=== PATIENT | male | born 1940 | race Caucasian/White ===

== ENCOUNTER 2017-11-10 07:13 | Day surgery (SDC) | payer OTHER ==
[~2017-11-10] VITALS: Ht 175.3 cm; Wt 81.8 kg
[~2017-11-10 07:13] MED LIST: AMIO200T33 PO; ASPI81TA27 PO; ENA10T PO; METO25TA62 PO; RIVA10TA PO; SIMV-13 PO
[2017-11-10] MEDS ORDERED: LIDOCAINE 2%HCL (LOCAL ANESTH.) INJ 20ML MDV ONE (07:31)
[2017-11-10] MEDS ORDERED: IODIXANOL 320MG/ML 100ML BTL IV ONE (07:31)
[2017-11-10] MEDS ORDERED: fentaNYL CITRATE 100 MCG/2 ML VL ONE (08:04)
[2017-11-10] MEDS ORDERED: SODIUM CHL 0.9% 0 ML ONE (08:04)
[2017-11-10] MEDS ORDERED: ANGIOMAX 250 MG VIAL IV ONE (08:04)
[2017-11-10] MEDS ORDERED: MIDAZOLAM HCL 1MG/1ML-2 ML VIAL ONE (08:04)
[2017-11-10] MEDS ORDERED: VERAPAMIL 2.5MG/ML INJ 2ML VIAL IV ONE (08:05)
[2017-11-10] MEDS ORDERED: HEPARIN SODIUM (PORCINE) 5000 UNITS/ML 1ML VIAL ONE (08:54)
== END 2017-11-10 10:45 | disposition home or self-care (01) ==
LOC: CATH 07:13
PROVIDERS: ATTEND Internal Medicine
DX: I25.10 Atherosclerotic heart disease of native coronary artery without angina pectoris (principal); R94.39 Abnormal result of other cardiovascular function study; I48.91 Unspecified atrial fibrillation; I99.8 Other disorder of circulatory system; I10 Essential (primary) hypertension; E11.9 Type 2 diabetes mellitus without complications; E78.5 Hyperlipidemia, unspecified; J44.9 Chronic obstructive pulmonary disease, unspecified; Z87.891 Personal history of nicotine dependence; Z79.01 Long term (current) use of anticoagulants; Z79.82 Long term (current) use of aspirin; Z79.899 Other long term (current) drug therapy
CPT/HCPCS: 93005; 93454; C1769; C1887; C1894; J1644; J2250; J3010; J7030; Q9967; 99152; 99153

== ENCOUNTER 2022-05-23 06:57 | Day surgery (SDC) | payer OTHER ==
[2022-05-23] VITALS (8 sets, daily range): BP systolic 113–133; BP diastolic 59–67
[~2022-05-23] VITALS: Ht 175.3 cm; Wt 90.7 kg
[~2022-05-23 06:57] MED LIST changes: -AMIO200T33 PO; +AMIO200T4 PO; +AMLO-496 PO; +APIX5TAB PO; -ASPI81TA27 PO; +ATOR40TA52 PO; -ENA10T PO; +ENAL10TA12 PO; +GLIP10TA9 PO; +LEVO75CA3 PO; -METO25TA62 PO; +METO25TA93 PO; +NITR0.4S29 SL; -RIVA10TA PO; -SIMV-13 PO
[2022-05-23] MEDS ORDERED: fentaNYL CITRATE 100 MCG/2 ML VL ONE (08:22)
[2022-05-23] MEDS ORDERED: HEPARIN SODIUM (PORCINE) 5000 UNITS/ML 1ML VIAL ONE (08:22)
[2022-05-23] MEDS ORDERED: MIDAZOLAM HCL 2MG/2ML 2ml VIAL (1mg/ml) ONE (08:22)
[2022-05-23] MEDS ORDERED: ANGIOMAX 250 MG VIAL IV ONE (08:22)
[2022-05-23] MEDS ORDERED: VERAPAMIL 2.5MG/ML INJ 2ML VIAL IV ONE (08:22)
[2022-05-23] MEDS ORDERED: LIDOCAINE 2%HCL (LOCAL ANESTH.) INJ 20ML MDV ONE (08:23)
[2022-05-23] MEDS ORDERED: IOHEXOL 350 MG/ML 100ML IJ ONE ×2 (08:23→09:45)
[2022-05-23] MEDS ORDERED: SODIUM CHL 0.9% 50 ML ONE (08:23)
[2022-05-23] MEDS ORDERED: IODIXANOL 320MG/ML 100ML BTL IV ONE (09:46)
[2022-05-23] MEDS ORDERED: CLOPIDOGREL 300 MG TAB ONE (09:58)
[2022-05-23] MEDS ORDERED: ASPirin 325 MG TAB ONE (09:58)
== END 2022-05-23 13:15 | disposition home or self-care (01) ==
LOC: CATH 06:57
PROVIDERS: ATTEND Internal Medicine Cardiovascular Disease
DX: I25.10 Atherosclerotic heart disease of native coronary artery without angina pectoris (principal); R94.39 Abnormal result of other cardiovascular function study; R06.09 Other forms of dyspnea; I77.1 Stricture of artery; I12.9 Hypertensive chronic kidney disease with stage 1 through stage 4 chronic kidney disease, or unspecified chronic kidney disease; E11.22 Type 2 diabetes mellitus with diabetic chronic kidney disease; Z86.73 Personal history of transient ischemic attack (TIA), and cerebral infarction without residual deficits; I48.91 Unspecified atrial fibrillation; E78.5 Hyperlipidemia, unspecified; Z79.01 Long term (current) use of anticoagulants; Z79.899 Other long term (current) drug therapy; Z79.84 Long term (current) use of oral hypoglycemic drugs; Z20.822 Contact with and (suspected) exposure to COVID-19; Z98.890 Other specified postprocedural states
CPT/HCPCS: 93458; C1725; C1760; C1769; C1874; C1887; C1894; C9600; J0583; J1644; J2250; J3010; J7040; Q9967; U0003; 99152; 99153

== ENCOUNTER 2022-06-04 09:11 | Inpatient (IN) | payer OTHER ==
[~2022-06-04] VITALS: Ht 175.3 cm; Wt 92.3 kg
[2022-06-04 10:29] LABS: Basophils # (auto) 0.1 10 ^3/uL (0-0.2); Basophils % (auto) 1.1 % (0.0-2.0); Eosinophils # (auto) 0.1 10 ^3/uL (0-0.8); Eosinophils % (auto) 2.2 % (0.0-7.0); Hematocrit 44.7 % (41.0-53.0); Hemoglobin 15.1 g/dL (13.5-17.5); Lymphocytes # (auto) 0.8 10 ^3/uL (0.4-5.4); Lymphocytes % (auto) 13.7 % (10.0-50.0); Mean Corpuscular Hemoglobin 30.8 pg (28.0-32.0); Mean Corpuscular Hgb Conc. 33.8 g/dL (32.0-36.0); Mean Corpuscular Volume 91.3 fL (80.0-100.0); Monocytes # (auto) 0.5 10 ^3/uL (0-1.3); Monocytes % (auto) 8.7 % (0.0-12.0); Neutrophils # (auto) 4.5 10 ^3/uL (1.6-8.6); Neutrophils % (auto) 74.3 % (37.0-80.0); Red Blood Cells 4.89 10^6/uL (4.5-5.90); Red Cell Distribution Width 14.4 % (11.8-14.3)
[2022-06-04 10:51] LABS: Bilirubin, Total 0.4 mg/dL (0.2-1.0); Total Protein 6.9 g/dL (6.4-8.2)
[2022-06-04 11:06] LABS: Albumin 3.6 g/dL (3.4-5.0); BUN/Creatinine Ratio 16.1; Calcium 8.6 mg/dL (8.5-10.1); Potassium 4.8 mmol/L (3.5-5.1)
[2022-06-04 11:28] LABS: INR 1.13 (0.9-1.15); Partial Thromboplastin Time 30.6 sec (24.6-33.4)
[2022-06-04] MEDS ORDERED: MORPHINE SULFATE INJ 2 MG/ml SYRG IV PRN (18:45)
[2022-06-04] MEDS ORDERED: DEXTROSE (50%) 50ML SYRG IV PRN (18:45)
[2022-06-04] MEDS ORDERED: NITROGLYCERIN 0.4 MG SL TAB SL PRN (18:45)
[2022-06-04] MEDS ORDERED: NITROGLYCERIN 0.4 MG SL TAB SL SCH (19:15)
[2022-06-04 20:00] LABS: Magnesium 2.3 mg/dL (1.6-2.6); Phosphorus 3.8 mg/dL (2.5-4.90)
[2022-06-04] MEDS: ENOXAPARIN SOD 100 MG/1 ML SYRINGE SC ONE ×2 (20:14→20:17)
[2022-06-04] MEDS ORDERED: CLOPIDOGREL BISULFATE 75 MG TAB PO ONE (20:30)
[2022-06-04 21:29] LABS: Cholesterol 172 mg/dL (< 200)
[2022-06-04 21:32] LABS: HDL Cholesterol 49 mg/dL (40-59); LDL Cholesterol 112 mg/dL (< 100); Triglycerides 133 mg/dL (< 150)
[2022-06-04] MEDS: ACCU-CHEK COMFORT CURVE STRIP VI SCH (21:33)
[2022-06-04] MEDS: APIXABAN 5 MG TAB PO SCH (21:38)
[2022-06-04] MEDS: METOPROLOL SUCCINATE XL 50 MG TAB PO SCH (21:38)
[2022-06-04] MEDS: InsuLIN REG 1unit/0.01ml Soln (100units/ml) SC SCH (21:51)
[2022-06-04] MEDS ORDERED: ATORVASTATIN 20 MG TAB PO SCH (22:00)
[2022-06-04] MEDS ORDERED: CLOP75TA70 PO (22:58)
[2022-06-04 23:25] VITALS: BP 129/74
[2022-06-05 04:45] LABS: Urine Bacteria NONE SEEN /hpf (None Seen); Urine Blood Negative /uL (Negative); Urine Hyaline Cast MOD /lpf (0 - 2); Urine Mucus FEW (None Seen); Urine Specific Gravity 1.019 (1.001-1.035); Urine WBC 2 /hpf (0 - 3)
[2022-06-05 04:50] LABS: Creatinine, Urine 170 mg/dL (30.0-125.0); Sodium Urine 85 mmol/L (40-220)
[2022-06-05 05:00] VITALS: BP 136/64
[2022-06-05 06:10] LABS: Basophils # (auto) 0.1 10 ^3/uL (0-0.2); Basophils % (auto) 0.9 % (0.0-2.0); Eosinophils # (auto) 0.2 10 ^3/uL (0-0.8); Eosinophils % (auto) 2.9 % (0.0-7.0); Hematocrit 38.9 % (41.0-53.0); Hemoglobin 13.5 g/dL (13.5-17.5); Lymphocytes % (auto) 15.4 % (10.0-50.0); Mean Corpuscular Hgb Conc. 34.7 g/dL (32.0-36.0); Mean Corpuscular Volume 89.3 fL (80.0-100.0); Monocytes # (auto) 0.9 10 ^3/uL (0-1.3); Monocytes % (auto) 12.7 % (0.0-12.0); Neutrophils # (auto) 4.6 10 ^3/uL (1.6-8.6); Neutrophils % (auto) 68.1 % (37.0-80.0); Nucleated Red Blood Cells % 0.1 %; Red Blood Cells 4.36 10^6/uL (4.5-5.90); Red Cell Distribution Width 14.2 % (11.8-14.3); White Blood Cell 6.8 10^3/uL (4.4-10.8)
[2022-06-05 06:28] LABS: Calcium 8.8 mg/dL (8.5-10.1); Potassium 4.6 mmol/L (3.5-5.1)
[2022-06-05 06:31] LABS: Albumin 3.4 g/dL (3.4-5.0); BUN/Creatinine Ratio 17.3
[2022-06-05 06:35] LABS: Bilirubin, Total 0.4 mg/dL (0.2-1.0); Total Protein 6.7 g/dL (6.4-8.2)
[2022-06-05] MEDS: ACCU-CHEK COMFORT CURVE STRIP VI SCH ×4 (07:09→21:43)
[2022-06-05] MEDS: InsuLIN REG 1unit/0.01ml Soln (100units/ml) SC SCH ×4 (07:13→21:44)
[2022-06-05 09:02] VITALS: BP 141/67
[2022-06-05] MEDS: METOPROLOL SUCCINATE XL 50 MG TAB PO SCH ×2 (10:00→21:43)
[2022-06-05] MEDS ORDERED: ENOXAPARIN SOD 40 MG/0.4 ML SYRINGE SC SCH (10:00)
[2022-06-05] MEDS: AMIODARONE HCL 200 MG TAB PO SCH (10:32)
[2022-06-05] MEDS: CLOPIDOGREL BISULFATE 75 MG TAB PO SCH (10:32)
[2022-06-05] MEDS: LEVOTHYROXINE SODIUM 25 MCG TAB PO SCH (10:32)
[2022-06-05] MEDS: ATORVASTATIN 20 MG TAB PO SCH (10:33)
[2022-06-05] MEDS: APIXABAN 5 MG TAB PO SCH ×2 (10:33→21:44)
[2022-06-05] MEDS: amLODIPine BESYLATE 5 MG TAB PO SCH (10:34)
[2022-06-05 12:40] VITALS: BP 127/55
[2022-06-05 17:30] VITALS: BP 124/67
[2022-06-05 22:00] VITALS: BP_SYST 115; BP_SYST 120; BP_DIAS 31; BP_DIAS 58
[2022-06-06 05:00] VITALS: BP 119/55
[2022-06-06] MEDS: ACCU-CHEK COMFORT CURVE STRIP VI SCH ×4 (06:17→20:57)
[2022-06-06] MEDS: InsuLIN REG 1unit/0.01ml Soln (100units/ml) SC SCH ×4 (06:18→22:00)
[2022-06-06 08:00] VITALS: BP 125/72
[2022-06-06 08:45] VITALS: BP 125/72
[2022-06-06] MEDS: LEVOTHYROXINE SODIUM 25 MCG TAB PO SCH (09:18)
[2022-06-06] MEDS: METOPROLOL SUCCINATE XL 50 MG TAB PO SCH ×2 (09:19→20:56)
[2022-06-06] MEDS: amLODIPine BESYLATE 5 MG TAB PO SCH (09:19)
[2022-06-06] MEDS: AMIODARONE HCL 200 MG TAB PO SCH (09:20)
[2022-06-06] MEDS: APIXABAN 5 MG TAB PO SCH ×2 (09:20→20:54)
[2022-06-06] MEDS: ATORVASTATIN 20 MG TAB PO SCH (09:20)
[2022-06-06] MEDS: CLOPIDOGREL BISULFATE 75 MG TAB PO SCH (09:20)
[2022-06-06 13:08] VITALS: BP 134/75
[2022-06-06 16:57] VITALS: BP 147/73
[2022-06-06 22:00] VITALS: BP 134/76
[2022-06-07] VITALS (7 sets, daily range): BP systolic 120–139; BP diastolic 67–74
[2022-06-07] MEDS: ACCU-CHEK COMFORT CURVE STRIP VI SCH ×4 (06:26→21:46)
[2022-06-07] MEDS: InsuLIN REG 1unit/0.01ml Soln (100units/ml) SC SCH ×4 (06:27→21:53)
[2022-06-07] MEDS: CLOPIDOGREL BISULFATE 75 MG TAB PO SCH (08:45)
[2022-06-07] MEDS: amLODIPine BESYLATE 5 MG TAB PO SCH (08:45)
[2022-06-07] MEDS: ATORVASTATIN 20 MG TAB PO SCH (08:45)
[2022-06-07] MEDS: APIXABAN 5 MG TAB PO SCH ×2 (08:46→21:45)
[2022-06-07] MEDS: LEVOTHYROXINE SODIUM 25 MCG TAB PO SCH (08:46)
[2022-06-07] MEDS: AMIODARONE HCL 200 MG TAB PO SCH (08:46)
[2022-06-07] MEDS: METOPROLOL SUCCINATE XL 50 MG TAB PO SCH ×2 (08:47→21:45)
[2022-06-08] VITALS (7 sets, daily range): BP systolic 133–142; BP diastolic 62–74
[2022-06-08] MEDS: InsuLIN REG 1unit/0.01ml Soln (100units/ml) SC SCH ×4 (06:09→21:52)
[2022-06-08] MEDS: ACCU-CHEK COMFORT CURVE STRIP VI SCH ×4 (06:11→21:52)
[2022-06-08] MEDS: APIXABAN 5 MG TAB PO SCH ×2 (09:58→21:50)
[2022-06-08] MEDS: CLOPIDOGREL BISULFATE 75 MG TAB PO SCH (09:58)
[2022-06-08] MEDS: AMIODARONE HCL 200 MG TAB PO SCH (09:58)
[2022-06-08] MEDS: ATORVASTATIN 20 MG TAB PO SCH (09:58)
[2022-06-08] MEDS: amLODIPine BESYLATE 5 MG TAB PO SCH (09:59)
[2022-06-08] MEDS: LEVOTHYROXINE SODIUM 25 MCG TAB PO SCH (09:59)
[2022-06-08] MEDS: METOPROLOL SUCCINATE XL 50 MG TAB PO SCH ×2 (09:59→21:52)
[2022-06-08 15:56] LABS: BUN/Creatinine Ratio 14.9; Calcium 8.7 mg/dL (8.5-10.1); Potassium 4.9 mmol/L (3.5-5.1)
[2022-06-09 05:00] VITALS: BP 137/71
[2022-06-09] MEDS: ACCU-CHEK COMFORT CURVE STRIP VI SCH ×3 (06:13→18:34)
[2022-06-09] MEDS: InsuLIN REG 1unit/0.01ml Soln (100units/ml) SC SCH ×3 (06:15→17:00)
[2022-06-09 06:25] LABS: Basophils # (auto) 0.1 10 ^3/uL (0-0.2); Basophils % (auto) 1.4 % (0.0-2.0); Eosinophils # (auto) 0.3 10 ^3/uL (0-0.8); Eosinophils % (auto) 4.9 % (0.0-7.0); Hematocrit 39.5 % (41.0-53.0); Hemoglobin 13.5 g/dL (13.5-17.5); Lymphocytes # (auto) 1.1 10 ^3/uL (0.4-5.4); Lymphocytes % (auto) 18.6 % (10.0-50.0); Mean Corpuscular Hemoglobin 30.2 pg (28.0-32.0); Mean Corpuscular Hgb Conc. 34.1 g/dL (32.0-36.0); Mean Corpuscular Volume 88.6 fL (80.0-100.0); Monocytes # (auto) 0.8 10 ^3/uL (0-1.3); Monocytes % (auto) 12.5 % (0.0-12.0); Neutrophils # (auto) 3.9 10 ^3/uL (1.6-8.6); Neutrophils % (auto) 62.6 % (37.0-80.0); Red Blood Cells 4.46 10^6/uL (4.5-5.90); Red Cell Distribution Width 14.2 % (11.8-14.3); White Blood Cell 6.2 10^3/uL (4.4-10.8)
[2022-06-09 08:00] VITALS: BP 128/78
[2022-06-09 09:08] VITALS: BP 128/78
[2022-06-09] MEDS: METOPROLOL SUCCINATE XL 50 MG TAB PO SCH ×2 (09:24→09:27)
[2022-06-09] MEDS: ATORVASTATIN 20 MG TAB PO SCH (09:25)
[2022-06-09] MEDS: LEVOTHYROXINE SODIUM 25 MCG TAB PO SCH (09:25)
[2022-06-09] MEDS: AMIODARONE HCL 200 MG TAB PO SCH (09:25)
[2022-06-09] MEDS: amLODIPine BESYLATE 5 MG TAB PO SCH (09:26)
[2022-06-09] MEDS: CLOPIDOGREL BISULFATE 75 MG TAB PO SCH (09:27)
[2022-06-09] MEDS: APIXABAN 5 MG TAB PO SCH (09:27)
[2022-06-09 09:30] LABS: Anion Gap 8 (5-15); Blood Urea Nitrogen 23 mg/dL (7-18); Carbon Dioxide 23 mmol/L (21-32); Chloride 110 mmol/L (98-107); Glucose 149 mg/dL (74-106); Magnesium 2.2 mg/dL (1.6-2.6); Potassium 4.6 mmol/L (3.5-5.1); Sodium 141 mmol/L (136-145)
[2022-06-09 09:33] LABS: BUN/Creatinine Ratio 13.8; Calcium 8.7 mg/dL (8.5-10.1); GFR African American 51 mL/min; GFR Non-African American 42 mL/min
[2022-06-09] MEDS ORDERED: METO25TA93 PO (10:53)
[2022-06-09 13:00] VITALS: BP 130/67
[2022-06-09 17:08] VITALS: BP 142/72
== END 2022-06-09 19:44 | disposition home or self-care (01) | DRG 100 ==
LOC: ER 09:11 → EDBD 09:11 → TELE 18:53 → TELE-WESTW 22:48
PROVIDERS: ADMIT Nurse Practitioner Family; ATTEND Internal Medicine
DX: G40.909 Epilepsy, unspecified, not intractable, without status epilepticus (principal); N17.0 Acute kidney failure with tubular necrosis; I69.354 Hemiplegia and hemiparesis following cerebral infarction affecting left non-dominant side; I65.21 Occlusion and stenosis of right carotid artery; E03.9 Hypothyroidism, unspecified; E11.65 Type 2 diabetes mellitus with hyperglycemia; E78.5 Hyperlipidemia, unspecified; Z79.02 Long term (current) use of antithrombotics/antiplatelets; Z20.822 Contact with and (suspected) exposure to COVID-19; F17.200 Nicotine dependence, unspecified, uncomplicated; I10 Essential (primary) hypertension; I48.0 Paroxysmal atrial fibrillation; I49.9 Cardiac arrhythmia, unspecified; I25.10 Atherosclerotic heart disease of native coronary artery without angina pectoris; I25.2 Old myocardial infarction; Z85.820 Personal history of malignant melanoma of skin; Z79.01 Long term (current) use of anticoagulants; Z79.899 Other long term (current) drug therapy; Z82.3 Family history of stroke; Z82.49 Family history of ischemic heart disease and other diseases of the circulatory system; Z95.5 Presence of coronary angioplasty implant and graft; Z79.84 Long term (current) use of oral hypoglycemic drugs
CPT/HCPCS: 36415; 70450; 70547; 70551; 71045; 78582; 80048; 80053; 80061; 81001; 82570; 82962; 83036; 83735; 84100; 84300; 84443; 84484; 85025; 85379; 85610; 85730; 87426; 93005; 93306; 93886; 93971; 95819; 96372; 97116; 97162; 97530; G0378; J1815

== ENCOUNTER 2023-12-02 06:22 | Day surgery (SDC) | payer OTHER ==
[2023-12-02] VITALS (8 sets, daily range): BP systolic 87–116; BP diastolic 50–67; PULSE 52–66; RESP 15–20; TEMP 97.7; O2SAT 91–95
[~2023-12-02] VITALS: Ht 175.3 cm; Wt 90.7 kg
[~2023-12-02 06:22] MED LIST changes: +ALFU1TAB15 PO; -AMIO200T4 PO; -AMLO-496 PO; +AMLO1TAB23 PO; +EMPA1TAB PO; -ENAL10TA12 PO; -GLIP10TA9 PO; -LEVO75CA3 PO; +LEVO88TA4 PO; +MULT-1018 PO; +SACU1TAB PO
[2023-12-02] MEDS ORDERED: IOHEXOL 350 MG/ML 100ML IJ ONE (07:11)
[2023-12-02] MEDS ORDERED: HEPARIN IN NS 1000Units/500mL 1,500 ML ONE (07:11)
[2023-12-02] MEDS ORDERED: GELATIN 1 SPONGE SIZE 50 TOP ONE (07:11)
[2023-12-02] MEDS ORDERED: LIDOCAINE 2%HCL (LOCAL ANESTH.) INJ 20ML MDV ONE (07:11)
[2023-12-02] MEDS ORDERED: ANGIOMAX 250 MG VIAL IV ONE (08:52)
[2023-12-02] MEDS ORDERED: fentaNYL CITRATE 100 MCG/2 ML VL ONE (08:53)
[2023-12-02] MEDS ORDERED: HEPARIN SODIUM (PORCINE) 5000 UNITS/ML 1ML VIAL ONE (08:53)
[2023-12-02] MEDS ORDERED: SODIUM CHL 0.9% 0 ML ONE (08:53)
[2023-12-02] MEDS ORDERED: MIDAZOLAM HCL 2MG/2ML 2ml VIAL (1mg/ml) ONE (08:53)
[2023-12-02] MEDS ORDERED: VERAPAMIL 2.5MG/ML INJ 2ML VIAL IV ONE (08:53)
[2023-12-02] MEDS ORDERED: IODIXANOL 320MG/ML 100ML BTL IV ONE (09:54)
== END 2023-12-02 12:25 | disposition home or self-care (01) ==
LOC: CATH 06:22
PROVIDERS: ATTEND Internal Medicine
DX: I25.10 Atherosclerotic heart disease of native coronary artery without angina pectoris (principal); J44.9 Chronic obstructive pulmonary disease, unspecified; Z82.49 Family history of ischemic heart disease and other diseases of the circulatory system; Z80.8 Family history of malignant neoplasm of other organs or systems; Z87.891 Personal history of nicotine dependence; Z95.5 Presence of coronary angioplasty implant and graft; Z79.899 Other long term (current) drug therapy; Z98.890 Other specified postprocedural states
CPT/HCPCS: 93458; C1769; C1887; C1894; J1644; J2250; J3010; J7030; Q9967; 99152; 99153